=== PATIENT | female | born 1985 | race African-American/Black ===

== ENCOUNTER → 2024-05-02 06:34 | Outpatient (CLI) | payer OTHER, SELFPAY ==
--- NOTE | 2024-05-02 | DI.MRI.S_ITS ---
PROCEDURE: MR ANKLE LT WO CON INDICATIONS: PERONEAL TENDINITIS TECHNIQUE: Noncontrast sagittal T1 spin echo and T2 fast spin echo with fat saturation, axial proton density fast spin echo and T2 fast spin echo with fat saturation, coronal T1 spin echo and T2 fast spin echo with fat saturation through the ankle/hindfoot. COMPARISON: None. FINDINGS: Image quality: Excellent. Bones and joints: No acute trabecular bone injury or fracture. No hindfoot coalitions. No osteochondral injuries of the talar dome. Small nonedematous posterior calcaneal enthesophyte. Minimal degenerative spurring at the dorsal talonavicular and naviculocuneiform articulations. Nonspecific subcutaneous edema plantar to the 5th metatarsal base. Thickening of the adjacent lateral band of the plantar fascia with mild surrounding fluid signal. Medial structures: Intrasubstance signal within the deep fibers of deltoid ligament compatible with a remote prior low-grade sprain. The spring ligament components are intact. Mild distal posterior tibialis tenosynovitis. The flexor digitorum longus and flexor hallucis longus tendons are intact. The posterior tibial neurovascular bundle appears normal within the tarsal tunnel, without extrinsic mass effect. Lateral structures: Remote prior low-grade sprains of the anterior talofibular ligament and the calcaneofibular ligament. The posterior talofibular ligament is intact. The anterior and posterior tibiofibular ligaments are intact. Moderate peroneus brevis and longus tendinosis. No tendon tearing is seen. The sinus tarsi demonstrates normal fatty signal. Anterior structures: The tibialis anterior, extensor hallucis longus, and extensor digitorum longus tendons appear intact. Posterior and plantar structures: Achilles tendon is intact. The proximal plantar fascia is intact. No abductor digiti minimi muscle atrophy to suggest [place] neuropathy. IMPRESSION: 1. Thickening of lateral band of the plantar fascia adjacent to the 5th metatarsal base with surrounding soft tissue edema and trace fluid, suspicious for acute fasciitis and possible focal partial tearing. 2. Moderate peroneus brevis and longus tendinosis without tendon tearing. 3. Remote prior low-grade sprains of the anterior talofibular ligament and calcaneofibular ligament. 4. Mild distal posterior tibialis tenosynovitis. 5. Remote prior low-grade sprain of the deltoid ligament. 6. Mild Achilles tendinosis. Approved by: Brody Moore M.D. on 05/03/2024 at 21:09
--- NOTE | 2024-05-02 | DI.MRI.S_ITS ---
PROCEDURE: MRFOOT LT WO CON INDICATIONS: PERONEAL TENDINITIS TECHNIQUE: Multiphasic, multisequence MRI of the forefoot was performed, without intravenous contrast administration. COMPARISON: None. FINDINGS: Image quality: Excellent. Bones and joints: No bone marrow contusions or metatarsal stress fractures. The sesamoid bones appear in expected positions, without internal edema. No metatarsophalangeal joint degeneration. No intraosseous lesions. Soft tissues: Thickening of the lateral band of the plantar fascia adjacent to the 5th metatarsal base with surrounding soft tissue edema and focal fluid. Small area of subcutaneous fluid signal plantar lateral to the 5th metatarsal head suspicious for small adventitial bursal effusion. The visualized flexor and extensor tendons are intact. The foot musculature demonstrates normal bulk and signal intensity. The distal insertions of the peroneus brevis and longus tendons appear intact. The principal Lisfranc ligament appears intact. No soft tissue ganglion cysts or bursal fluid collections. Sagittal images demonstrate no evidence for plantar plate tears. IMPRESSION: 1. Focal thickening of the lateral band of the plantar fascia adjacent to the 5th metatarsal base with surrounding soft tissue edema and trace fluid, suspicious for acute fasciitis and possible partial tearing. 2. No acute trabecular bone injury. No acute tendon tearing is seen. 3. Small adventitial bursal effusion or mild bursitis plantar to the 5th metatarsal head. Approved by: Brody Moore M.D. on 05/03/2024 at 21:13
== END ==
PROVIDERS: Referring Provider Podiatrist; Visit Provider Podiatrist
DX: M76.72 Peroneal tendinitis, left leg (principal); M79.672 Pain in left foot; S93.422A Sprain of deltoid ligament of left ankle, initial encounter; S93.492A Sprain of other ligament of left ankle, initial encounter; S93.412A Sprain of calcaneofibular ligament of left ankle, initial encounter
CPT/HCPCS: 73718; 73721